=== PATIENT | female | born 1945 | race Caucasian/White ===

== ENCOUNTER 2020-02-20 09:51 | Outpatient (CLI) | payer MEDICARE, SELFPAY ==
--- NOTE | 2020-02-20 11:00 | MR_ITS ---
WS: [id number] MRA ANGIOGRAPHY [place] OF [place] HISTORY: Weakness RIGHT upper extremity. RIGHT facial numbness. Vertigo. COMPARISON: None available. TECHNIQUE: 3-D MR angiography is performed of the elim ira of [place]. All images are reviewed including source images. Distal RIGHT vertebral artery caliber is small but it is patent. Basilar artery is normal caliber. Po sterior cerebral arteries bilaterally are patent. Neither posterior communicating artery is very well visualized. LEFT P-comm is very small caliber and faint. May be absent or hypoplastic. Intracranial portion of the internal carotid arteries are normal course and caliber. No significant a therosclerosis, stenosis or aneurysm identified. Middle and anterior cerebral arteries are both paten t with no significant disease. Anterior communicating artery is also normal. MR/MR angio head wo con [id number] IMPRESSION: 1. Small caliber distal RIGHT vertebral artery. May be normal variation. Disse ction or intraluminal thrombus cannot be completely excluded. Consider follow-u p CT angiogram vertebral arteries. 2. Neither posterior communicating artery is easily identified. They may be hy poplastic or absent. There is a very small caliber LEFT P-comm identified. 3. Widely patent intracranial carotid arteries.
--- NOTE | 2020-02-20 11:00 | MR_ITS ---
WS: [id number] MRA CAROTID ARTERIES HISTORY: RT FACIAL NUMBNESS COMPARISON: None available. TECHNIQUE: MRA is performed with intravenous gadolinium. MIP and source images are reviewed. Right: RIGHT common carotid artery, internal and external carotid arteries are widely patent. No sten osis. No focal narrowing or occlusion. Left: LEFT common carotid artery, internal and external carotid arteries are widely patent. Common ca rotid artery arises from the arch. No stenosis. No focal narrowing or occlusion. Subclavian Arteries: Subclavian arteries are both widely patent. Vertebral Arteries: Distal RIGHT vertebral artery is mildly elongated and crosses the midline at the skull base. There is focal long segment narrowing. The lumen is smooth. Normal caliber and appearance of the LEFT vertebral artery MR/MR angio neck w con* [id number] IMPRESSION: 1. No significant stenosis carotid arteries. 2. Long segment narrowing of the distal RIGHT vertebral artery. Segmental narr owing is smooth with no occlusion. This could be normal variation. Further eval uation may include CT angiogram of the vertebral arteries to evaluate for possi ble dissection or smooth intraluminal thrombus.
== END 2020-02-20 09:52 | disposition home or self-care (01) ==
LOC: RADSHAW 09:51
PROVIDERS: Family Provider Internal Medicine; PCP Internal Medicine; Visit Provider Internal Medicine
DX: R29.898 Other symptoms and signs involving the musculoskeletal system (principal); R53.1 Weakness; R20.0 Anesthesia of skin; R42 Dizziness and giddiness
CPT/HCPCS: 36415; 70544; 70548; 82565; A9579

== ENCOUNTER 2020-04-16 08:48 | Outpatient (CLI) | payer MEDICARE, SELFPAY ==
--- NOTE | 2020-04-16 10:15 | US_ITS ---
WS: [id number] BILATERAL DIGITAL DIAGNOSTIC MAMMOGRAM MAMMOGRAPHY WITH CAD CLINICAL INFORMATION: LUMP COMPARISON: None. TECHNIQUE: Bilateral CC, MLO, and ML views. FINDINGS: Scattered fibroglandular densities bilaterally. Punctate calcifications. Palpable marker inner quadra nt left breast. No mammographic abnormalities in the area of palpable marker. Right breast is unchang ed. Ultrasound is pending. . ULTRASOUND BREAST LEFT TECHNIQUE: Ultrasound left breast focused area of concern. CLINICAL INFORMATION: LUMP COMPARISON: February 16, 2017 FINDINGS: Ultrasound left breast at the 10:00 position, upper inner quadrant and left upper and inner quadrant. No evidence of pathologic mass or lesion. Normal underlying breast parenchyma. No lesions to target for biopsy. Normal underlying breast tissue. US/US breast LT complete [id number] IMPRESSION: BI-RADS: 2-Benign FOLLOW UP: 1 Year Follow-up Recommend return to annual screening mammography.
--- NOTE | 2020-04-16 10:21 | MM_ITS ---
WS: [id number] BILATERAL DIGITAL DIAGNOSTIC MAMMOGRAM MAMMOGRAPHY WITH CAD CLINICAL INFORMATION: LUMP COMPARISON: None. TECHNIQUE: Bilateral CC, MLO, and ML views. FINDINGS: Scattered fibroglandular densities bilaterally. Punctate calcifications. Palpable marker inner quadra nt left breast. No mammographic abnormalities in the area of palpable marker. Right breast is unchang ed. Ultrasound is pending. . ULTRASOUND BREAST LEFT TECHNIQUE: Ultrasound left breast focused area of concern. CLINICAL INFORMATION: LUMP COMPARISON: February 16, 2017 FINDINGS: Ultrasound left breast at the 10:00 position, upper inner quadrant and left upper and inner quadrant. No evidence of pathologic mass or lesion. Normal underlying breast parenchyma. No lesions to target for biopsy. Normal underlying breast tissue. MM/[place] [id number] IMPRESSION: BI-RADS: 2-Benign FOLLOW UP: 1 Year Follow-up Recommend return to annual screening mammography.
== END 2020-04-16 08:49 | disposition home or self-care (01) ==
LOC: RAD 08:49
PROVIDERS: PCP Internal Medicine; Visit Provider Internal Medicine
DX: N63.22 Unspecified lump in the left breast, upper inner quadrant (principal)
CPT/HCPCS: 76641; 77066

== ENCOUNTER 2020-04-21 20:00 | Outpatient (CLI) | payer MEDICARE, SELFPAY | END 2020-04-21 20:01 | disposition home or self-care (01) | LOC: SLEEP 04-22 08:28 | PROVIDERS: PCP Internal Medicine; Visit Provider Internal Medicine | DX: R40.0 Somnolence (principal); G47.33 Obstructive sleep apnea (adult) (pediatric) | CPT/HCPCS: 95810 ==

== ENCOUNTER 2020-06-16 20:00 | Outpatient (CLI) | payer MEDICARE, SELFPAY | END 2020-06-16 20:01 | disposition home or self-care (01) | LOC: SLEEP 06-17 09:25 | PROVIDERS: PCP Internal Medicine; Visit Provider Internal Medicine | DX: G47.33 Obstructive sleep apnea (adult) (pediatric) (principal) | CPT/HCPCS: 95811 ==

== ENCOUNTER → 2021-06-24 16:17 | Outpatient (BNVA) | payer MEDICARE, SELFPAY | PROVIDERS: PCP Internal Medicine; Visit Provider Internal Medicine | DX: E11.9 Type 2 diabetes mellitus without complications (principal); G45.9 Transient cerebral ischemic attack, unspecified; I10 Essential (primary) hypertension; G47.33 Obstructive sleep apnea (adult) (pediatric) | CPT/HCPCS: 80053; 80061; 83036; 84443 ==

== ENCOUNTER → 2021-07-29 13:00 | Outpatient (BNVA) | payer MEDICARE, SELFPAY | PROVIDERS: PCP Internal Medicine; Visit Provider Internal Medicine | DX: Z01.812 Encounter for preprocedural laboratory examination (principal); R11.2 Nausea with vomiting, unspecified; Z20.822 Contact with and (suspected) exposure to COVID-19; R63.4 Abnormal weight loss; R53.83 Other fatigue | CPT/HCPCS: 80053; 84443; 87635 ==

== ENCOUNTER 2021-08-03 06:20 | Day surgery (SDC) | payer MEDICARE, SELFPAY ==
--- NOTE | 2021-08-03 06:48 | ANES.PREANE2 ---
Pre-Anesthetic Assessment Pre-Anesthetic Assessment: Height/Weight: Height 1.52 m Weight 64.41 kg Preop Diagnosis: N/V Proposed Procedure: Operation Date: 08/03/21 08:00 Proposed Procedures p EGD 18104 R11.2(Not Applicable) - Ramesh Merino MD Familial anesthetic complications: Said she quit breathing during her rotator cuff surgery and anesthesiologist had to quickly put ETT in and he clipped her flap back there and she had sore throat afterwards. Was told she's hard to put to sleep and wake up. But was not told it was difficult to get the ETT in place Was Beta Aleks taken within 24 hours: N/A Was Clonidine taken within 24 hours: N/A Last intake: > 8 hrs Social: Social History: No alcohol and No tobacco Exam: Pre-Anes Outpt Exam: alert, oriented x 3, clear to auscultation bilaterally and regular rate & rhythm Airway: Cervical ROM: WNL MP: 2 Dentition: False Pulmonary: Pulmonary: Sleep apnea CV/HEM: CV/HEM: HTN Metabolic: Metabolic: DM and Thyroid Neuropsych: Neuropsych: TIA Anesthetic Plan: ASA status: 3 Anesthesia: MAC Risk of > 500 ml blood loss (7ml/kg in children): No PFSH Anesthesia PFSH: Medical History (Updated 07/29/21 @ 09:58 by Ramesh Merino MD) Depression Diabetes HTN (hypertension) Hypothyroidism, unspecified Family History Other Cancer Social History Smoking and tobacco status: never smoked Alcohol intake: never Data Anesthesia Cardiac Studies: No Data to Display
[2021-08-03 07:20] VITALS: BP 184/79; PULSE 75; RESP 18; TEMP 36.4; O2SAT 98
[2021-08-03 07:21] LABS: Glucose Point of Care 101 mg/dL (70-110)
[2021-08-03] MEDS: sodium chloride 0.9% 1,000 ML 30 ML IV (07:35)
--- NOTE | 2021-08-03 07:44 | P.HP_ITS ---
Same Day Surgery H&P Indication for Procedure/HPI DATE OF PROCEDURE: August 03, 2021 CHIEF COMPLAINT/INDICATIONFOR SURGICAL PROCEDURE: Nausea and vomiting PREOP DIAGNOSIS: N/V PLANNED PROCEDRUE: Operation Date: 08/03/21 08:00 Proposed Procedures p EGD 45422 R11.2(Not Applicable) - Ramesh Merino MD Medications/Allergies* Home Medications Medication Instructions Recorded Confirmed Type aspirin [Baby Aspirin] 81 mg PO DAILY 07/30/21 08/03/21 History metformin 500 mg PO BID 07/30/21 08/03/21 History Allergies/Adverse Reactions Allergy/AdvReac Type Severity Reaction Status Date / Time tioconazole [From Vagistat-1] Allergy ALGY-Rash Verified 08/03/21 07:04 trazodone AdvReac ADR-Dizzine Verified 08/03/21 07:04 ss Current Medications: Generic Name Dose Route Start Last Admin Trade Name Freq PRN Reason Stop Dose Admin Sodium Chloride 1,000 mls @ 30 mls/hr 08/03/21 06:45 08/03/21 07:35 Sodium Chloride 0.9% IV 30 mls/hr .Q24H ORTIZ Administration Pertinent History/Comorbid Conditions* Medical History (Updated 07/29/21 @ 09:58 by Ramesh Merino MD) Depression Diabetes HTN (hypertension) Hypothyroidism, unspecified Family History (Updated 02/07/20 @ 13:30 by Brittny Browne RN) Cancer Social History Smoking and tobacco status: never smoked Alcohol intake: never Pertinent Exam Findings alert, oriented x 3, clear to auscultation bilaterally, regular rate & rhythm, operative site marked and procedure specific exam findings Recommendations Surgery/Procedure today Coding Level of Care Code 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
[2021-08-03 08:51] VITALS: BP 127/93; PULSE 105; RESP 15; TEMP 36.3; O2SAT 93
[2021-08-03 09:15] VITALS: BP 160/94; PULSE 78; RESP 16; O2SAT 94
--- NOTE | 2021-08-03 14:56 | ANE.PACU2 ---
Inpatient post-anesthesia follow up: Airway intact: Yes Vital signs: Temperature 97.3 F Pulse Rate 78 Respiratory Rate 16 Blood Pressure 160/94 Pulse Oximetry 94 Oxygen Delivery Me thod Room Air Oxygen Flow Rate Fraction of Inspir ed Oxygen Hydration adequate: Yes Nausea and vomiting: No Pain level: 2 Mental status: Baseline
[2021-08-04 13:02] LABS: H. Pylori / CLO Test Negative
== END 2021-08-03 09:25 | disposition home or self-care (01) ==
PROVIDERS: PCP Internal Medicine; Visit Provider Internal Medicine
PROC: 0DJ08ZZ Inspection of Upper Intestinal Tract, Via Natural or Artificial Opening Endoscopic (ICD-10-PCS; CPT 43235; principal; 2021-08-03 08:00)
DX: R11.2 Nausea with vomiting, unspecified (principal); K44.9 Diaphragmatic hernia without obstruction or gangrene; K29.70 Gastritis, unspecified, without bleeding; K31.1 Adult hypertrophic pyloric stenosis; G47.30 Sleep apnea, unspecified; I10 Essential (primary) hypertension; D11.9 Benign neoplasm of major salivary gland, unspecified; Z86.73 Personal history of transient ischemic attack (TIA), and cerebral infarction without residual deficits; E03.9 Hypothyroidism, unspecified
CPT/HCPCS: 36416; 43239; 82962; 87077; 96360; J2704; J7030

== ENCOUNTER 2021-09-07 08:09 | Outpatient (CLI) | payer MEDICARE, SELFPAY ==
--- NOTE | 2021-09-07 08:18 | US_ITS ---
WS: [id number] ULTRASOUND ABDOMEN LIMITED CLINICAL INFORMATION: n/v COMPARISON: None. FINDINGS: Liver Size: Normal. Craniocaudal length: 14.2 cm. Echogenicity: Normal. Surface nodularity: None. Mass (size and location): None. Bile ducts Intrahepatic ducts: Normal. Common bile duct diameter: 0.5 cm. Gallbladder Normal. Gallstones: None. Gallbladder sludge: None. Gallbladder wall thickening: None. Pericholecystic fluid: None. Sonographic Sol sign: Absent. Pancreas Normal as visualized. Right kidney: Normal. Hydronephrosis: None. Size: 9.8 cm x 5.5 cm x 5.6 cm. Abdominal aorta and IVC Visualized portions are normal. Ascites: None. US/US gall bladder [id number] IMPRESSION: Normal abdominal ultrasound
== END 2021-09-07 08:10 | disposition home or self-care (01) ==
LOC: US 08:12
PROVIDERS: PCP Internal Medicine; Visit Provider Internal Medicine
DX: R11.2 Nausea with vomiting, unspecified (principal)
CPT/HCPCS: 76705; 93976

== ENCOUNTER → 2021-09-25 11:19 | Outpatient (BNVA) | payer MEDICARE, SELFPAY | PROVIDERS: PCP Internal Medicine; Visit Provider Surgery | DX: Z11.52 Encounter for screening for COVID-19 (principal); Z20.822 Contact with and (suspected) exposure to COVID-19 | CPT/HCPCS: 87635 ==

== ENCOUNTER 2021-09-28 10:00 | Day surgery (SDC) | payer MEDICARE, SELFPAY ==
[2021-09-25 17:04] VITALS: BMI 27.7
[2021-09-28] VITALS (11 sets, daily range): BP systolic 120–196; BP diastolic 53–92; PULSE 50–76; RESP 17–20; TEMP 36.2–36.6; O2SAT 91–100
--- NOTE | 2021-09-28 10:50 | W.PM.OPSUD ---
Surgery/Procedure H&P Update DATE OF PROCEDURE: September 28, 2021 DATE H&P PERFORMED: 09/25/21 H&P UPDATE INFORMATION: I have reviewed H&P completed within last 30 days, I have examined patient prior to procedure and No changes to prior documentation PREOP DIAGNOSIS: N/V PLANNED PROCEDURE: Operation Date: 09/28/21 10:00 Proposed Procedures p Laparoscopic Cholecystectomy 92850 R10.9(Not Applicable) - Wong Aldrich MD
[2021-09-28 10:52] LABS: Glucose Point of Care 111 mg/dL (70-110)
[2021-09-28] MEDS: sodium chloride 0.9% 1,000 ML 30 ML IV (10:55)
--- NOTE | 2021-09-28 11:01 | ANES.PREANE2 ---
Pre-Anesthetic Assessment Pre-Anesthetic Assessment: Height/Weight: Height 1.52 m Weight 64.41 kg Temp Pulse Resp BP Pulse Ox 97.8 F 76 18 190/92 97 09/28/21 10:20 09/28/21 10:20 09/28/21 10:20 09/28/21 10:20 09/28/21 10:20 Preop Diagnosis: N/V Proposed Procedure: Operation Date: 09/28/21 10:00 Proposed Procedures p Laparoscopic Cholecystectomy 09691 R10.9(Not Applicable) - Wong Aldrich MD Was Clonidine taken within 24 hours: N/A Last intake: Intake Last Liquid Date 09/27/21 Last Liquid Time 21:00 Last Solid Date 09/27/21 Last Solid Time 21:00 Social: Social History: No alcohol and No tobacco Exam: Pre-Anes Outpt Exam: alert, oriented x 3, clear to auscultation bilaterally and regular rate & rhythm Airway: Submandibular: WNL Cervical ROM: WNL MP: 2 Dentition: Full History/ROS: No significant history except as noted and No significant complaints Pulmonary: Pulmonary: None reported CV/HEM: CV/HEM: HTN : : None reported Hepatic: Hepatic: None reported GI: GI: None reported Metabolic: Metabolic: DM and Thyroid Musc/skel: Musc/skel: OA/DJD Neuropsych: Neuropsych: None reported Anesthetic Plan: ASA status: 3 Anesthesia: Anesthesia Evaluation and General Risk of > 500 ml blood loss (7ml/kg in children): No Meds/Allergies Current Medications: Current Medications Generic Name Dose Route Start Last Admin Trade Name Freq PRN Reason Stop Dose Admin Sodium Chloride 1,000 mls @ 30 ml s/hr 09/28/21 10:15 09/28/21 10:55 Sodium Chloride 0.9% IV 09/29/21 10:14 30 mls/hr .Q24H ORTIZ Administration PFSH Anesthesia PFSH: Medical History Depression Diabetes HTN (hypertension) Hypothyroidism, unspecified Surgical History (Updated 09/25/21 @ 11:06 by Wong Aldrich MD) H/O right wrist surgery History of colonoscopy 2015 History of elbow surgery History of esophagogastroduodenoscopy a couple weeks ago 2020 History of hysterectomy for cancer S/P rotator cuff repair Family History Other Cancer Social History Alcohol intake: never Data Anesthesia Other Labs: Laboratory Results - last 48 hr 09/28/21 10:42 POC Glucose 111 H Cardiac Studies: No Data to Display
[2021-09-28] MEDS: fentaNYL 50 mcg/mL INJ 2mL IVP (12:05)
--- NOTE | 2021-09-28 12:32 | PM.OP ---
Operative Report Date of procedure: September 28, 2021 Pre-op Diagnosis: Chronic cholecystitis Post-op diagnosis: same Procedure Done: Laparoscopic cholecystectomy Specimens removed/disposition: Gallbladder Surgeon: Wong Aldrich Anesthesia: General Condition: stable Disposition: PACU Procedure: The patient was taken to the operating room and was intubated under general anesthesia. After the antibiotic had been administered, the abdomen was prepped and draped in a sterile manner. Using a #15 blade, a 1 centimeter infraumbilical curvilinear incision was made and using an open Omar technique the peritoneal cavity was entered. A 10 millimeter port was placed and 15 millimeters of pneumoperitoneum was created. A 10 millimeter, 30 degrees scope was then introduced. Three 5 millimeter ports were placed in the epigastric, midclavicular and the anterior axillary line two fingerbreadths below the costal margin on the right side under the direct visualization. Ratcheted forceps were introduced into the lateral most port and was used to retract the fundus of the gallbladder cephalad and using forceps the infundibulum of the gallbladder was retracted laterally. Using L-hook cautery the peritoneum overlying the Calot's triangle was opened medially and laterally until the cystic duct and the cystic artery were skeletonized. Dissection was carried along the body of the gallbladder and after ensuring critical view of safety, 4 clips applied on the cystic duct and 3 clips applied on the cystic artery and cut leaving, 3 clips on the remaining portion of the duct and 2 clips on the remaining portion of the artery. The rest of the gallbladder was dissected off the liver using L-hook cautery. There was an opening in the gallbladder with spillage of bile which was irrigated and suctioned out. There was no spillage of stones. There is also a small capsular tear in the gallbladder fossa and the bleeding was controlled with electrocautery. There was no bleeding or bile leaking noted from the gallbladder fossa and the clips appeared to be in place. An EndoCatch bag was introduced to remove the gallbladder. All the ports were removed under direct visualization and there was no bleeding noted from the port sites. The fascia of the umbilicus was closed using [id number] 0 Vicryl sutures and the subcutaneous tissue were approximated using 3-0 Vicryl sutures. The skin at all four ports were closed using 4-0 Monocryl and Dermabond. A total of 10 millimeters of 0.5% Marcaine was infiltrated around the port sites. The patient was extubated and transferred to recovery room in stable condition.
[2021-09-28] MEDS: ondansetron 2 mg/ML SDV 2 mL 4 MG IVP (13:05)
[2021-09-28] MEDS: HYDROcodone-acetaminophen 5-325 mg Tablet 1 TAB PO (13:17)
--- NOTE | 2021-09-28 14:31 | ANE.PACU2 ---
Inpatient post-anesthesia follow up: Airway intact: Yes Vital signs: Temperature 97.8 F Pulse Rate 60 Respiratory Rate 18 Blood Pressure 129/65 Pulse Oximetry 92 Oxygen Delivery Me thod Room Air Oxygen Flow Rate 3 Fraction of Inspir ed Oxygen Hydration adequate: Yes Nausea and vomiting: No Pain level: 2 Mental status: Baseline
== END 2021-09-28 13:49 | disposition home or self-care (01) ==
PROVIDERS: PCP Internal Medicine; Visit Provider Surgery
PROC: 0FT44ZZ Resection of Gallbladder, Percutaneous Endoscopic Approach (ICD-10-PCS; CPT 47562; principal; 2021-09-28 10:00)
DX: K81.1 Chronic cholecystitis (principal); I10 Essential (primary) hypertension; M19.90 Unspecified osteoarthritis, unspecified site; E11.9 Type 2 diabetes mellitus without complications; E03.9 Hypothyroidism, unspecified; Z90.710 Acquired absence of both cervix and uterus; Z79.82 Long term (current) use of aspirin
CPT/HCPCS: 47562; 36416; 82962; 88304; 96374; J0690; J1100; J2405; J2704; J2710; J3010; J3490; J7030

== ENCOUNTER 2021-10-27 10:17 | Outpatient (CLI) | payer MEDICARE, SELFPAY ==
[2021-10-27 10:45] LABS: Basophils % 0.5 %; Eosinophils # 0.2 10^3/uL (0.0-0.8); Eosinophils % 3.6 %; Hematocrit 42.3 % (37.0-47.0); Hemoglobin 12.9 g/dL (11.5-15.3); Lymphocytes # 1.6 10^3/uL (0.8-4.8); Lymphocytes % 25.9 %; Mean Corpuscular HGB Conc 30.5 g/dL (30.0-36.0); Mean Corpuscular Hemoglobin 27.7 pg (28.0-34.0); Mean Corpuscular Volume 90.8 fl (81-99); Mean Platelet Volume 10.4 fL (7.4-10.4); Monocytes # 0.5 10^3/uL (0.2-0.9); Monocytes % 8.4 %; Neutrophils # 3.71 10^3/uL (1.8-7.7); Neutrophils % 61.1 %; Nucleated Red Blood Cells % 0 %; Platelet Count 269 10^3/cmm (130-400); Red Blood Count 4.66 10^6/uL (4.1-5.3); Red Cell Distribution Width 13.3 % (12.1-15.1); White Blood Count 6.1 10^3/uL (4.0-10.0)
[2021-10-27 11:03] LABS: Alanine Aminotransferase 11 U/L (0-33); Albumin Level 3.9 g/dL (3.5-5.2); Alkaline Phosphatase 78 IU/L (35-105); Aspartate Amino Transferase 15 U/L (0-32); Blood Urea Nitrogen 17 mg/dL (8-23); Calcium 9.1 mg/dL (8.5-10.5); Carbon Dioxide 20 mmol/L (22-29); Chloride 102 mmol/L (98-107); Globulin 3.5 g/dL (1.3-4.6); Glucose 152 mg/dL (65-115); Lipase 35 U/L (13-60); Osmolality Calculated 295 mOsm/kg (285-295); Sodium 140 mmol/L (136-145); Total Bilirubin 0.4 mg/dL (0.15-1.2); Total Protein 7.4 g/dL (6.6-8.7)
== END 2021-10-27 10:18 | disposition home or self-care (01) ==
LOC: LAB 10:24
PROVIDERS: PCP Internal Medicine; Visit Provider Surgery
DX: R19.7 Diarrhea, unspecified (principal)
CPT/HCPCS: 36415; 80053; 83630; 83690; 85025; 87177; 87209; 87493; 87506